=== PATIENT | male | born 1995 | race Caucasian/White ===

== ENCOUNTER → 2021-11-30 16:01 | Outpatient (CLI) | payer OTHER, SELFPAY ==
--- NOTE | ~2021-11-30 | US_ITS ---
US axilla RT 11/30/2021 16:14 Indication: Right axillary lump. Procedure: High-resolution ultrasound of the right axilla Comparison: No prior studies for comparison. Findings: There is a normal 6 mm lymph node in the right axilla. No suspicious masses are identified. No abnormal fluid collections. Impression: 1: Unremarkable right axillary ultrasound. Reviewed, dictated and finalized at location A. Impression: 1: Unremarkable right axillary ultrasound.
== END ==
PROVIDERS: PCP Student in an Organized Health Care Education/Training Program; Visit Provider Student in an Organized Health Care Education/Training Program
DX: R22.31 Localized swelling, mass and lump, right upper limb (principal)
CPT/HCPCS: 76882